=== PATIENT | female | born 1955 | race Caucasian/White ===

== ENCOUNTER 2021-04-17 08:49 | Outpatient (CLI) | payer OTHER, SELFPAY ==
--- NOTE | ~2021-04-17 | MM_ITS ---
EXAMINATION: MM scrn kevin implant BI w judy HISTORY: Screening mammogram TECHNIQUE: Craniocaudal and mediolateral oblique 3-D tomosynthesis images with implant displacement a nd synthetic 2-D images were generated. Craniocaudal and mediolateral oblique views of the breasts wi thout implant displacement were obtained using full field digital mammography. CAD analysis was submi tted and interpreted. COMPARISON: 12/05/2018, 10/22/2017 BREAST PARENCHYMAL COMPOSITION: There are scattered areas of fibroglandular density. FINDINGS: There is no evidence of suspicious mass, calcification, or architectural distortion to sugg est malignancy in either breast. There has been no suspicious interval change. IMPRESSION: 1. No mammographic evidence of malignancy. 2. Recommend routine screening mammography in one year. BI-RADS Category 1: Negative Reviewed, dictated and finalized at location A.
== END 2021-04-17 08:50 | disposition home or self-care (01) ==
LOC: ANHIMG 08:52
PROVIDERS: PCP Internal Medicine; Visit Provider Obstetrics & Gynecology
DX: Z12.31 Encounter for screening mammogram for malignant neoplasm of breast (principal)
CPT/HCPCS: 77063; 77067

== ENCOUNTER 2022-05-21 15:52 | Outpatient (CLI) | payer OTHER, SELFPAY ==
--- NOTE | ~2022-05-21 | MM_ITS ---
EXAMINATION: MM scrn kevin implant BI w judy HISTORY: Screening mammogram TECHNIQUE: Craniocaudal and mediolateral oblique 3-D tomosynthesis images with implant displacement a nd synthetic 2-D images were generated. Craniocaudal and mediolateral oblique views of the breasts wi thout implant displacement were obtained using full field digital mammography. CAD analysis was submi tted and interpreted. COMPARISON: 04/17/2021, 12/05/2018, 10/22/2017 bilateral implant screening mammogram examinations BREAST PARENCHYMAL COMPOSITION: There are scattered areas of fibroglandular density. FINDINGS: Status post bilateral augmentation mammoplasty. There is no evidence of suspicious mass, ca lcification, or architectural distortion to suggest malignancy in either breast. There has been no benjamin spicious interval change. IMPRESSION: 1. No mammographic evidence of malignancy. 2. Recommend routine screening mammography in one year. BI-RADS Category 1: Negative Reviewed, dictated and finalized at location A.
== END 2022-05-21 15:53 | disposition home or self-care (01) ==
PROVIDERS: PCP Internal Medicine; Visit Provider Obstetrics & Gynecology
DX: Z12.31 Encounter for screening mammogram for malignant neoplasm of breast (principal)
CPT/HCPCS: 77063; 77067

== ENCOUNTER 2023-02-05 00:29 | Day surgery (SDC) | payer OTHER, SELFPAY ==
[2023-02-02 14:25] VITALS: BMI 29.5
--- NOTE | 2023-02-04 14:28 | WPDANESEPPF ---
Anes - Initial Pre Proc Eval Procedure: Operation Date: 02/05/23 08:00 Proposed Procedures p Screening Colonoscopy - Doe Shanks MD Date/Time: 02/04/23 14:28 Surgeon: Doe Shanks MD Pre Op Diagnosis: neoplasm screening Patient Data Age: 67 Gender: F Height: 1.63 m Weight: 78.2 kg Allergies Allergy/AdvReac Type Severity Reaction Status Date / Time prednisone AdvReac hot Verified 02/02/23 14:26 flashes red face Home Medications Medication Instructions Recorded Confirmed Type multivitamin,[id number] 1 tablet PO DAILY 02/15/20 02/02/23 History (Complete Multivitamin tablet) levocetirizine [Xyzal] 5 mg PO DAILY 12/23/21 02/02/23 History metoprolol succinate 50 mg 50 mg PO DAILY 12/23/21 02/02/23 History tablet,extended release 24 hr estradiol 1 mg tablet 1 mg PO DAILY #30 tabs 11/09/22 02/02/23 Rx clonidine HCl 0.1 mg tablet 0.1 mg PO DAILY #30 tabs 12/10/22 02/02/23 Rx sodium,potassium,mag sulfates 17.5 See Rx Instructions PO .COMPLEX 12/28/22 Rx gram-3.13 gram-1.6 gram oral soln #354 mL (Suprep Bowel Prep Kit) ascorbic acid (vitamin C) 1,000 mg 1 g PO DAILY 02/02/23 02/02/23 History capsule atorvastatin 10 mg tablet 10 mg PO DAILY 02/02/23 02/02/23 History azelastine 137 mcg (0.1 %) nasal 1 spray intranasal BID 02/02/23 02/02/23 History spray aerosol calcium 600 mg capsule 600 mg PO DAILY 02/02/23 02/02/23 History gabapentin 300 mg capsule 300 mg PO TID 02/02/23 02/02/23 History Patient hx anesthesia problems: none Family hx anesthesia problems: none Results Review: All pre-operative results and documents have been reviewed as part of the pre-operative evaluation. [facility] Past Medical History Medical History (Updated 02/04/23 @ 14:28 by Macario Beltran MD) History of vaginal delivery x 3 Hyperlipidemia due to dietary fat intake Hypertension Overweight (BMI 25.0-29.9) Surgical History Surgical History H/O elbow surgery History of breast surgery History of foot surgery History of hysterectomy Hx of tonsillectomy Family History Family History Father Hypertension Family history of coronary artery disease Mother Hypertension Family history of coronary artery disease Sibling Family history of coronary artery disease Social History Social History Smoking status: Former smoker Tobacco type: cigarettes Second hand tobacco smoke exposure: No Smoking end date: 08/23/95 Alcohol intake: current Drinks per week: 3 Alcohol use details: GLASSES WINE Substance use: never Substance use type: does not use and marijuana Other substance usage details: OCC. VAPING Lack of Transportation: No Lack of Food: Never True Current Housing: I Have Housing Concerned About Future Housing: No Difficulty Paying Gas/Electric Bills: No Difficulty Paying for Meds: No Currently Unemployed: No Difficulty w/ Childcare or Family Care: No Living arrangements: with family Spiritual care concerns: No Anes - Eval Final PreProcedure Day of Procedure 02/04/23 14:28 Patient weight: overweight Heart: regular rate and rhythm Lungs: clear to auscultation and normal air movement Airway: Mallampati scale class II Neurological: alert and oriented Last oral intake: >/= 8 hours ASA classification: II Emergent: no Anesthetic plan: proceed Anesthesia type and monitoring: general GIVS Results Review: All pre-operative results and documents have been reviewed as part of the pre-operative evaluation. Informed Consent: The patient's anesthetic plan and its attendant risks and benefits were discussed with the patient/family/POA. Questions were solicited and answers provided to the satisfaction of the patient/family/POA.
[2023-02-05 06:45] VITALS: BP 163/86; PULSE 69; RESP 16; TEMP 36.3; O2SAT 99; BMI 28.8
[2023-02-05] MEDS: LACTATED RINGERS 1,000 ML 150 ML IV CONT (07:06)
--- NOTE | 2023-02-05 08:02 | PM.HPGS ---
History of Present Illness History of Present Illness Consent: Risks, benefits, and alternatives have been discussed and questions answered. Patient agrees to proceed with procedure. Chief complaint: neoplasm screening Narrative: Bozena Hylton is a 67 year old female Presents for screening colonoscopy. Patient's current weight appetite bowel movements are normal. Patient denies abdominal pain. She has had no bleeding. Family history is noncontributory. Review of Systems Review of Systems: Review of systems noncontributory. [facility] Past Medical History Medical History (Updated 02/05/23 @ 08:03 by Doe Shanks MD) History of vaginal delivery x 3 Hyperlipidemia due to dietary fat intake Hypertension Overweight (BMI 25.0-29.9) Surgical History Surgical History H/O elbow surgery History of breast surgery History of foot surgery History of hysterectomy Hx of tonsillectomy Family History Family History Father Hypertension Family history of coronary artery disease Mother Hypertension Family history of coronary artery disease Sibling Family history of coronary artery disease Social History Social History Smoking status: Former smoker Tobacco type: cigarettes Second hand tobacco smoke exposure: No Smoking end date: 08/23/95 Alcohol intake: current Drinks per week: 3 Alcohol use details: GLASSES WINE Substance use: never Substance use type: does not use and marijuana Other substance usage details: OCC. VAPING Lack of Transportation: No Lack of Food: Never True Current Housing: I Have Housing Concerned About Future Housing: No Difficulty Paying Gas/Electric Bills: No Difficulty Paying for Meds: No Currently Unemployed: No Difficulty w/ Childcare or Family Care: No Living arrangements: with family Spiritual care concerns: No Meds Home Medications and Allergies Home Medications Medication Instructions Recorded Confirmed Type multivitamin,[id number] 1 tablet PO DAILY 02/15/20 02/02/23 History (Complete Multivitamin tablet) levocetirizine [Xyzal] 5 mg PO DAILY 12/23/21 02/02/23 History metoprolol succinate 50 mg 50 mg PO DAILY 12/23/21 02/02/23 History tablet,extended release 24 hr estradiol 1 mg tablet 1 mg PO DAILY #30 tabs 11/09/22 02/02/23 Rx clonidine HCl 0.1 mg tablet 0.1 mg PO DAILY #30 tabs 12/10/22 02/02/23 Rx sodium,potassium,mag sulfates 17.5 See Rx Instructions PO .COMPLEX 12/28/22 Rx gram-3.13 gram-1.6 gram oral soln #354 mL (Suprep Bowel Prep Kit) ascorbic acid (vitamin C) 1,000 mg 1 g PO DAILY 02/02/23 02/02/23 History capsule atorvastatin 10 mg tablet 10 mg PO DAILY 02/02/23 02/02/23 History azelastine 137 mcg (0.1 %) nasal 1 spray intranasal BID 02/02/23 02/02/23 History spray aerosol calcium 600 mg capsule 600 mg PO DAILY 02/02/23 02/02/23 History gabapentin 300 mg capsule 300 mg PO TID 02/02/23 02/02/23 History Allergies Allergy/AdvReac Type Severity Reaction Status Date / Time prednisone AdvReac hot Verified 02/02/23 14:26 flashes red face Vital Signs Vital Signs - 24 hr 02/05/23 06:45 Temperature 97.3 F L Pulse Rate 69 Respiratory Rate 16 Blood Pressure 163/86 H Pulse Oximetry 99 Oxygen Delivery Room Air Exam Narrative: Physical exam reveals patient to be alert. Vital signs stable. HEENT exam is unremarkable. Patient is anicteric. Lungs are clear to auscultation and percussion. Heart is without murmur or extra sounds. Abdominal exam bowel sounds are present soft nontender with no hepatosplenomegaly. Digital external rectal exam is normal. Assessment and Plan Assessment and plan (1) Encounter for screening colonoscopy: Code(s): Z12.11 - Encounter for screening for malignant neoplasm of
[2023-02-05 08:31] VITALS: BP 117/75; PULSE 79; RESP 24; O2SAT 97
[2023-02-05 08:41] VITALS: BP 130/84; PULSE 74; RESP 20; O2SAT 99
[2023-02-05 08:51] VITALS: BP 141/94; PULSE 71; RESP 18; O2SAT 99
== END 2023-02-05 08:59 | disposition home or self-care (01) ==
PROVIDERS: PCP Hospitalist; Visit Provider Internal Medicine Gastroenterology
PROC: 0DJD8ZZ Inspection of Lower Intestinal Tract, Via Natural or Artificial Opening Endoscopic (ICD-10-PCS; CPT 45378; principal; 2023-02-05 08:00)
DX: Z12.11 Encounter for screening for malignant neoplasm of colon (principal); K64.8 Other hemorrhoids; I10 Essential (primary) hypertension; E78.5 Hyperlipidemia, unspecified; Z87.891 Personal history of nicotine dependence; F12.90 Cannabis use, unspecified, uncomplicated
CPT/HCPCS: G0121; J2704; J7120

== ENCOUNTER 2023-04-01 08:00 | Outpatient (NON) | payer OTHER, SELFPAY | END 2023-04-01 08:01 | disposition home or self-care (01) | PROVIDERS: PCP Hospitalist; Visit Provider Nurse Practitioner | DX: L72.11 Pilar cyst (principal) | CPT/HCPCS: 88305 ==

== ENCOUNTER 2023-08-30 14:26 | Outpatient (CLI) | payer MEDICARE, SELFPAY ==
--- NOTE | ~2023-08-30 | MM_ITS ---
EXAMINATION: MM scrn kevin implant BI w judy HISTORY: Screening mammogram TECHNIQUE: Craniocaudal and mediolateral oblique 3-D tomosynthesis images with implant displacement a nd synthetic 2-D images were generated. Craniocaudal and mediolateral oblique views of the breasts wi thout implant displacement were obtained using full field digital mammography. CAD analysis was submi tted and interpreted. COMPARISON: 05/21/2022, 04/17/2021, 12/05/2018 BREAST PARENCHYMAL COMPOSITION: There are scattered areas of fibroglandular density. FINDINGS: There is no evidence of suspicious mass, calcification, or architectural distortion to sugg est malignancy in either breast. There has been no suspicious interval change. IMPRESSION: 1. No mammographic evidence of malignancy. 2. Recommend routine screening mammography in one year. BI-RADS Category 1: Negative Reviewed, dictated and finalized at location A. [employer]
== END 2023-08-30 14:27 | disposition home or self-care (01) ==
LOC: ANHIMG 14:29
PROVIDERS: PCP Hospitalist; Visit Provider Obstetrics & Gynecology
DX: Z12.31 Encounter for screening mammogram for malignant neoplasm of breast (principal); Z98.82 Breast implant status
CPT/HCPCS: 77063; 77067

== ENCOUNTER 2024-01-18 09:23 | Outpatient (CLI) | payer MEDICARE, SELFPAY ==
[2024-01-18 10:09] LABS: Alanine Aminotransferase 33 U/L (6-35); Albumin Level 4.4 g/dL (3.5-5.1); Alkaline Phosphatase 85 U/L (38-126); Aspartate Amino Transferase 33 U/L (14-36); Bilirubin,Total 0.4 mg/dL (0.2-1.3)
== END 2024-01-18 09:24 | disposition home or self-care (01) ==
PROVIDERS: PCP Hospitalist; Visit Provider Obstetrics & Gynecology
DX: N95.9 Unspecified menopausal and perimenopausal disorder (principal)
CPT/HCPCS: 36415; 80076

== ENCOUNTER 2024-05-15 00:30 | Day surgery (SDC) | payer MEDICARE, SELFPAY ==
[2024-05-08 10:55] VITALS: BMI 29.5
--- NOTE | 2024-05-08 11:12 | PC.NURSE ---
Report to the Outpatient Waiting Room, entrance under the green pavilion located off [facility], at time ____9:00AM___ on date ___05/15/24____. Planned Procedure Time: ___11:00AM .? Time changes happen often and if your time is changed the preop area will call you the afternoon before. - You and your visitor will be asked to self-screen and do not enter if you have any COVID symptoms. Please call surgeon if you need to reschedule. - A mask is optional within the hospital at this time. Patients may have clear liquids (water, carbonated beverages, clear teas, apple juice) until 3 hours prior to surgery with a maximum of 20 ounces. - No food from midnight until time of surgery and no smoking. Take only the following medications with a SIP of water on the morning of surgery: BUPROPION, PREGABALIN DO NOT STOP ANY OF YOUR OTHER PRESCRIPTION MEDICATIONS PRIOR TO SURGERY EXCEPT THE FOLLOWING Medications to discontinue per physician ____HOLD ALL VITAMINS/SUPPLEMENTS 7 DAYS PRE-OP PER DR DONOVAN Date to take last dose 05/07/24 Please no make-up, nail german, hairspray, perfume, deodorant, or body powder the day of surgery.? No jewelry (including any body piercings) or valuables the day of surgery, leave them at home.? Please take a shower or bath the night before, or the morning of, surgery with an antibacterial soap.? Wear comfortable, loose fitting clothing.? - Jewelry must be removed prior to entering the operating room.? Rings and piercings that are not removed may be cut off. - The hospital will not accept responsibility for valuables.? - Please leave all valuables, including medications, at home the day of surgery. If you are going home after surgery, a licensed buggy driver must drive you home.? - NO public transportation without another adult if you receive anesthesia. - We recommend that an adult stay with you for 24 hours following discharge. - We also recommend that you do not drive, make important decision, drink alcoholic beverages, or take any drugs that were not prescribed by your health care provider for at least 24 hours after your discharge time.. Follow any additional instructions given to you from your surgeon. Telephone instructions given to PATIENT and asked if any additional questions and then verbalized understanding. Patient advised to call surgeon office or pre surgery nurse liaison [phone] if any additional questions.
--- NOTE | 2024-05-12 10:57 | PM.IMHP ---
H&P: HPI History of Present Illness Date/Time: 05/12/24 10:57 Chief Complaint: Mixed incontinence Narrative: Has history of mixed incontinence. Presents for surgical treatment of stress incontinence Review of Systems Review of Systems: All systems reviewed & are unremarkable except as noted in HPI and below PMFSH Past Medical History Medical History History of vaginal delivery x 3 Hyperlipidemia due to dietary fat intake Hypertension Overweight (BMI 25.0-29.9) Surgical History Surgical History H/O elbow surgery History of breast surgery History of foot surgery History of hysterectomy Hx of tonsillectomy Family History Family History Father Hypertension Family history of coronary artery disease Mother Hypertension Family history of coronary artery disease Sibling Family history of coronary artery disease Social History Social History Smoking packs per day: 1 Smoking cigarettes per day: 20.0 Years smoked: 20 Smoking pack-years: 20.00 Smoking status: Former smoker Tobacco type: cigarettes Second hand tobacco smoke exposure: No Smoking end date: 02/21/96 Alcohol intake: current Drinks per week: 2 Alcohol use details: GLASSES WINE Substance use: never Substance use type: does not use and marijuana Other substance usage details: OCC. VAPING Lack of Transportation: No Lack of Food: Never True Current Housing: I Have Housing Concerned About Future Housing: No Difficulty Paying Gas/Electric Bills: No Difficulty Paying for Meds: No Currently Unemployed: No Difficulty w/ Childcare or Family Care: No Living arrangements: with family Additional living arrangements comments: MATTHEW Spiritual care concerns: No Meds Home Medications and Allergies Home Medications Medication Instructions Recorded Confirmed Type multivitamin,[id number]-[id number] 1 tablet PO DAILY 02/15/20 05/08/24 History (Complete Multivitamin tablet) metoprolol succinate 50 mg 50 mg PO DAILY 12/23/21 05/08/24 History tablet,extended release 24 hr ascorbic acid (vitamin C) 1,000 mg 1 g PO DAILY 02/02/23 05/08/24 History capsule atorvastatin 10 mg tablet 10 mg PO DAILY 02/02/23 05/08/24 History calcium 600 mg capsule 600 mg PO DAILY 02/02/23 05/08/24 History bupropion HCl 150 mg 24 hr tablet, 150 mg PO QAM 12/30/23 05/08/24 History extended release estradiol 1 mg tablet 1 mg PO DAILY #90 tabs 02/23/24 05/08/24 Rx clonidine HCl 0.1 mg tablet 0.1 mg PO HS 05/08/24 05/08/24 History levocetirizine 5 mg tablet (Xyzal) 5 mg PO HS 05/08/24 05/08/24 History pregabalin 150 mg capsule 150 mg PO BID 05/08/24 05/08/24 History Allergies Allergy/AdvReac Type Severity Reaction Status Date / Time prednisone AdvReac hot Verified 05/08/24 10:47 flashes, red face Exam Narrative: Positive urethral mobility Assessment and Plan Assessment and plan (1) LEENA (stress urinary incontinence, female): Code(s): N39.3 - Stress incontinence (female) (male) Status: Acute Assessment and Plan: Plan for urethral sling. Understands risks of bleeding, infection, damage surrounding organs, damage to urinary tract, vaginal mesh extrusion, urinary tract mesh erosion, obstructive voiding requiring requiring a secondary procedure, hip and leg pain, dyspareunia. Agrees to proceed. Also understands it will not help overactive bladder symptoms
[2024-05-15] VITALS (8 sets, daily range): BP systolic 81–158; BP diastolic 50–93; PULSE 72–80; RESP 9–16; TEMP 36.1–36.5; O2SAT 94–99
--- NOTE | 2024-05-15 07:16 | WPDHPUPDATE1 ---
History and Physical Update Update Date/Time: 05/15/24 07:16 History and Physical has been reviewed, including an updated exam of the patient. There are NO changes in the patient's condition. Risks, benefits, and alternatives have been discussed and questions answered. Patient agrees to proceed with procedure.
[2024-05-15] MEDS: LACTATED RINGERS 1,000 ML 30 ML IV CONT (09:40)
--- NOTE | 2024-05-15 10:18 | WPDANESEPPF ---
Anes - Initial Pre Proc Eval Procedure: Operation Date: 05/15/24 11:00 Proposed Procedures p Urethral Sling, Cystoscopy - Tate Kimball MD Date/Time: 05/15/24 10:18 Surgeon: Tate Kimball MD Pre Op Diagnosis: stress incontinence Patient Data Age: 69 Gender: F Height: 1.63 m Weight: 79.7 kg Last Vital Signs Temp 97.0 F L 05/15/24 09:49 Pulse 76 05/15/24 09:49 Resp 16 05/15/24 09:49 BP 158/93 H 05/15/24 09:49 Pulse Ox 95 05/15/24 09:49 O2 Del Method Room Air 05/15/24 09:49 Allergies Allergy/AdvReac Type Severity Reaction Status Date / Time prednisone AdvReac hot Verified 05/15/24 09:30 flashes, red face Home Medications Medication Instructions Recorded Confirmed Type multivitamin,[id number] 1 tablet PO DAILY 02/15/20 05/08/24 History (Complete Multivitamin tablet) metoprolol succinate 50 mg 50 mg PO DAILY 12/23/21 05/08/24 History tablet,extended release 24 hr ascorbic acid (vitamin C) 1,000 mg 1 g PO DAILY 02/02/23 05/08/24 History capsule atorvastatin 10 mg tablet 10 mg PO DAILY 02/02/23 05/08/24 History calcium 600 mg capsule 600 mg PO DAILY 02/02/23 05/08/24 History bupropion HCl 150 mg 24 hr tablet, 150 mg PO QAM 12/30/23 05/15/24 History extended release estradiol 1 mg tablet 1 mg PO DAILY #90 tabs 02/23/24 05/08/24 Rx clonidine HCl 0.1 mg tablet 0.1 mg PO HS 05/08/24 05/08/24 History levocetirizine 5 mg tablet (Xyzal) 5 mg PO HS 05/08/24 05/08/24 History pregabalin 150 mg capsule 150 mg PO BID 05/08/24 05/15/24 History hydrocodone 5 mg-acetaminophen 325 1 tablet PO Q6H PRN pain #15 tabs 05/15/24 Rx mg tablet Patient hx anesthesia problems: none Family hx anesthesia problems: none Results Review: All pre-operative results and documents have been reviewed as part of the pre-operative evaluation. PMFSH Past Medical History Medical History History of vaginal delivery x 3 Hyperlipidemia due to dietary fat intake Hypertension Overweight (BMI 25.0-29.9) Surgical History Surgical History H/O elbow surgery History of breast surgery History of foot surgery History of hysterectomy Hx of tonsillectomy Family History Family History Father Hypertension Family history of coronary artery disease Mother Hypertension Family history of coronary artery disease Sibling Family history of coronary artery disease Social History Social History Smoking packs per day: 1 Smoking cigarettes per day: 20.0 Years smoked: 20 Smoking pack-years: 20.00 Smoking status: Former smoker Tobacco type: cigarettes Second hand tobacco smoke exposure: No Smoking end date: 02/21/96 Alcohol intake: current Drinks per week: 2 Alcohol use details: GLASSES WINE Substance use: never Substance use type: does not use and marijuana Other substance usage details: OCC. VAPING Lack of Transportation: No Lack of Food: Never True Current Housing: I Have Housing Concerned About Future Housing: No Difficulty Paying Gas/Electric Bills: No Difficulty Paying for Meds: No Currently Unemployed: No Difficulty w/ Childcare or Family Care: No Living arrangements: with family Additional living arrangements comments: HUSB Spiritual care concerns: No Anes - Eval Final PreProcedure Day of Procedure 05/15/24 10:18 Patient weight: normal Heart: regular rate and rhythm Lungs: clear to auscultation Airway: Mallampati scale class II Neurological: alert and oriented Last oral intake: >/= 8 hours ASA classification: III Emergent: no Anesthetic plan: proceed Anesthesia type and monitoring: general GIVS and standard monitoring Results Review: All pre-operative results and documents have been
[2024-05-15] MEDS: ceFAZolin 2 GM/D5W 50 ML 2 GM/50 ML BAG IVPB (10:22)
[2024-05-15] MEDS: BUPIVACAINE/EPINEPHRINE 0.5% 50 ML VIAL 10 ML INFILTRATE (10:38)
--- NOTE | 2024-05-15 10:58 | W.PM.PROC2 ---
Procedure Note - Detailed Date of Procedure 05/15/24 Pre-op Diagnosis stress incontinence Post-op Diagnosis Same Procedure Performed mid urethral sling cystoscopy Surgeon Tate Kimball MD Anesthesia General Indications This is a female with confirm stress urinary incontinence. She desires surgical correction. She understands the risks of bleeding, infection, injury to the urinary tract, vaginal mesh extrusion, urinary tract mesh erosion, obstructive voiding requiring a secondary procedure, hip and leg pain, dyspareunia, inability to improve overactive bladder symptoms. She agrees to proceed. Description of Procedure She was correctly identified. Informed consent obtained. She was brought the operating room. She was given appropriate anesthesia. She was given appropriate perioperative antibiotics. A time-out performed. I marked out the site of the inner thigh incisions. I anesthetized the skin and made those incisions. I anesthetized the anterior vaginal wall over the mid urethra. I made a 1 cm incision. I dissected out laterally taking great care not to injure the refilled vaginal wall. I passed the helical trocars. First on the left. Then on the right. I did this from the thigh incision towards the vaginal incision. The sling was connected to the trocars and brought out through the thigh incision. I tensioned the sling appropriately. I cut and the plastic sheaths. I then closed the incision with 2 0 Vicryl. On cystoscopy there is no tumors or surgical artifact. There was no surgical artifact in the urethra. I cut the excess sling material. Close incisions with glue. She was awakened and transferred to the PACU in stable condition. Implants Urethral sling Drains No Packing No Pathology None sent Complications No immediate complications Condition Stable Disposition PACU
== END 2024-05-15 12:37 | disposition home or self-care (01) ==
PROVIDERS: PCP Hospitalist; Visit Provider Urology
PROC: (CPT 57288; principal; 2024-05-15 11:00)
DX: N39.3 Stress incontinence (female) (male) (principal); I10 Essential (primary) hypertension; E78.5 Hyperlipidemia, unspecified; Z79.891 Long term (current) use of opiate analgesic; Z98.890 Other specified postprocedural states; Z87.891 Personal history of nicotine dependence; Z82.49 Family history of ischemic heart disease and other diseases of the circulatory system
CPT/HCPCS: 57288; C1771; J0690; J1100; J2250; J2405; J2704; J3010; J7120

== ENCOUNTER 2025-01-09 07:53 | Outpatient (CLI) | payer MEDICARE, SELFPAY ==
--- NOTE | ~2025-01-09 | DEXA_ITS ---
Bone Density Report Name: JERE PORRAS Age: 69 Sex: Female Ethnicity: White Date of : 1955 Indication: postmenopausal; screening for osteoporosis; hysterectomy; Referring Provider: RADHA MODI Study: Bone densitometry was performed. Exam Date: January 09, 2025 Accession number: [id number] Bone Density: Region BMD T-score Z-score Classification AP Spine(L1-L4) 1.047 0.0 1.9 Normal Femoral Neck (Left) 0.705 -1.3 0.4 Osteopenia Total Hip (Left) 0.897 -0.4 1.0 Normal Femoral Neck (Right) 0.723 -1.1 0.5 Osteopenia Total Hip (Right) 0.913 -0.2 1.1 Normal Total Hip Mean 0.905 -0.3 1.1 Normal World Health Organization criteria for BMD impression classify patients as: Normal (T-score at or above -1.0), Osteopenia (T-score between -1.0 and -2.5), or Osteoporosis (T-score at or below -2.5). 10-year Fracture Risk(1): Major Osteoporotic Fracture 8.8% Hip Fracture 0.9% Reported Risk Factors: [place] (), Neck BMD=0.705, BMI=30.1 (1) FRAX(R) Version 3.08. Fracture probability calculated for an untreated patient. Fracture probability may be lower if the patient has received treatment. Previous Exams: -- Region Exam Age BMD T-score BMD Change BMD Change Date g/cm2 vs Baseline vs Previous -- AP Spine (L1-L4) 01/09/2025 69 1.047 0.0 -3.4%* -3.4%* 12/05/2018 63 1.084 0.3 Total Hip(Left) 01/09/2025 69 0.897 -0.4 -2.6% -2.6% 12/05/2018 63 0.921 -0.2 Total Hip(Right) 01/09/2025 69 0.913 -0.2 2.7% 2.7% 12/05/2018 63 0.889 -0.4 -- *Denotes significance at 95% confidence level, LSC for AP Spine = 0.022 g/cm2, LSC for Total Hip = 0.027 g/cm2 Clinical Information Provided by Patient: Has used the following medications: HRT (i.e. estrogen/hormone therapy), Calcium Has the following medical conditions: Hysterectomy Patient maximum height was 64.0 Menopause Age: 52 No regular weight bearing exercise Drinks caffeinated beverages Onset of menses at age 15 Number of children 3 Impression: The patient has low bone mass, based on the Left Femoral Neck T-score. The patient has an estimated ten-year risk of hip fracture of 0.9% and an estimated ten-year risk of major fracture of 8.8%, based on the WHO FRAX algorithm. The BMD for the AP Spine (L1-L4) decreased, changing by -3.4% since the last DXA exam. Discussion: BONE DENSITY IS LOW AT ONE OR MORE SKELETAL SITES. This patient's lowest T-score is low at one or more skeletal sites. It meets the World Health Organization's (WHO) criteria for ?low bone mass? (T-score between -1.0 and -2.5). The patient's 10-year risk of fracture as calculated by FRAX is less than the threshold where pharmacological therapy is recommended by the National Osteoporosis Foundation (NOF). However, all treatment decisions require clinical judgment and consideration of individual patient factors, including patient preferences, comorbidities, previous drug use, risk factors not captured in the FRAX model (e.g., frailty, falls, vitamin D deficiency, increased bone turnover, interval significant decline in bone density) and possible under or overestimation of fracture risk by FRAX. The patient should follow a healthful lifestyle (good nutrition with adequate calcium and vitamin D, and appropriate weight-bearing exercise). Follow-Up: Consider repeating this study in 2 years to reassess this patient's status, or sooner if there is some new clinical indication. Reported by: ANABEL on 01/10/2025 8:59:00 AM. Reviewed, dictated and finalized at location A.
== END 2025-01-09 07:54 | disposition home or self-care (01) ==
PROVIDERS: PCP Hospitalist; Visit Provider Obstetrics & Gynecology
DX: M85.852 Other specified disorders of bone density and structure, left thigh (principal); M85.851 Other specified disorders of bone density and structure, right thigh; Z78.0 Asymptomatic menopausal state
CPT/HCPCS: 77080

== ENCOUNTER 2025-04-18 14:33 | Outpatient (CLI) | payer MEDICARE, SELFPAY ==
--- NOTE | ~2025-04-18 | MM_ITS ---
EXAMINATION: MM scrn kevin implant BI w judy INDICATION: Asymptomatic, referred for screening mammogram COMPARISON: 08/30/2023 through 10/22/2017 TECHNIQUE: Digital Breast Tomosynthesis CC, MLO, and implant displaced CC and MLO views of Both breasts were obtained with computer-aided detection to assist in interpretation of the study. FINDINGS: There are scattered areas of fibroglandular density. Bilateral breast Retropectoral Saline implants in place appears intact. No focal dominant mass, architectural distortion, or suspicious microcalcifications are identified. There are no features to suggest malignancy. IMPRESSION: 1. No evidence of malignancy in the breasts. 2. Both breasts Retropectoral Saline implants appears intact. Recommend continued screening mammography BI-RADS 1, NEGATIVE Reviewed, dictated and finalized at location B.
--- OUTSIDE RECORDS SUMMARY | 2025-04-18 14:39 | XMS_ITS | Encounter Summary ---
Author Organization [facility] Address [address] [place] [address] Phone Care Team Providers Care Physical Therapy Asst Name Role Phone Jhoan Allen MD Primary Care Provider [phone] New Campo MD Unavailable [phone] Reason for Visit * Reason Comments Medication Refill Encounter Details Date Type Department Care Team (Late st Contact Info) Description 10/28/2022 Refill [facility] - [facility] Care - [place] [address] [place] [phone] Jhoan Allen MD [address] [place] [address] Medication Refill Social History Tobacco Use Types Packs/Day Years Used Date Smoking Tobacco: Former Cigarettes 1 20 0 09/02/1974 - 09/02/1994 Smokeless Tobacco: Never Alcohol Use Standard Drinks/Week Comments Yes 1 (1 standard drink = 0.6 oz pur e alcohol) PHQ-2 Answer Date Recorded PHQ-2 Score 1 04/21/2019 Education Answer Date Recorded What is the highest level of school you have completed or the highest degree you have received? GED or equivalent 10/2021 Comments No Sex and Gender Information Value Date Recorded Sex Assigned at Not on file Legal Sex Female 9:05 PM CDT Gender Identity Not on file Sexual Orientation Not on file documented as of this encounter Miscellaneous Notes * Telephone Encounter - Suzanne Herrera RN - 10/28/2022 9:44 AM CST metoprolol Succinate (TOPROL-XL) 50 MG TABLET SR 24 HR 90 Tablet 0 09/28/2022 Refill too soon BOARD OPERATOR documented in this encounter Plan of Treatment Not on file documented as of this encounter Visit Diagnoses Diagnosis Hypertension, essential Unspecified essential hypertension documented in this encounter Additional Health Concerns Assessment Noted Time PHQ-9 Depression Total Score: 1 05/19/20 18 1:00 PM CDT documented as of this encounter Care Teams Physical Therapy Asst Relationship Specialty Start Date End Date Jhoan Allen MD [address] [place] [address] PCP - General Internal Medicine 09/02/15 New Campo MD [address] [facility] [address] [place], [place] [id number] Consulting Physician Obstetrics & Gynecology 01/29/17 documented as of this encounter
--- OUTSIDE RECORDS SUMMARY | 2025-04-18 14:39 | XMS_ITS | Clinical Summary ---
Author Organization [facility] Address [address] [address] Phone Care Team Providers Care Marble Polisher Name Role Phone Unknown, Notinfile Unavailable Unavailable Richard Gonzalez MD Primary Care Provider [phone] Allergies Active Allergy Reactions Criticality Noted Date Comments Methylprednisolone Hives Medium 03/04/2020 Medications estradioL (ESTRACE) 1 mg tablet Take 1 tablet (1 mg total) by mouth daily 2 Active levocetirizine (XYZAL) 5 mg tablet Take 1 tablet (5 mg total) by mouth every evening Active azelastine (ASTELIN) 137 mcg (0.1 %) nasal spray Administer 1 spray into each nostril 2 (two) times a day Use in each nostril as directed 30 mL 2 3 Active cloNIDine (CATAPRES) 0.1 mg tabletIndications: Hypertension, essential Take 1 tablet (0.1 mg total) by mouth daily 90 tablet 1 4 Active metoprolol XL (TOPROL-XL) 50 mg extended release tabletIndications: Hypertension, essential Take 1 tablet (50 mg total) by mouth daily 90 tablet 3 4 025 Active pregabalin (LYRICA) 150 mg capsuleIndications :Idiopathic peripheral neuropathy Take 1 capsule (150 mg total) by mouth 2 (two) times a day 180 capsule 1 5 026 Active atorvastatin (LIPITOR) 10 mg tabletIndications: Mixed hyperlipidemia Take 1 tablet (10 mg total) by mouth daily 90 tablet [address] (CYMBALTA) 20 mg capsule Take 1 capsule (20 mg total) by mouth daily for 14 days, THEN 2 capsules (40 mg total) daily for 14 days, THEN 3 capsules (60 mg total) daily. 222 capsule 5 025 Active Active Problems Problem Noted Date Diagnosed Date Pain in both feet 02/10/2024 Assessment & Plan (02/10/2024 9:28 AM CDT): Impression: Patient complains of pain to the bottom of bilateral feet. She reports pain worsens when she is bare foot. She denies any symptoms of claudication, ischemic rest pain or ulcerations to her lower extremity. Patient has palpable pulses throughout bilateral lower extremities. Minimal edema is noted to bilateral feet. Plan: Patient unlikely has peripheral vascular disease as she has palpable pulses and denies any symptoms of claudication. -recommend patient to follow-up with primary care provider for further evaluation with possible referral to podiatry. Numbness and tingling in both hands 02/10/2024 Assessment & Plan (02/10/2024 9:27 AM CDT): Impression: Patient complains of numbness to bilateral hands that occur intermittently. She denies any symptoms suggestive of claudication of her upper extremities. Patient has palpable radial and brachial pulses. Plan: Discussed with the patient numbness to bilateral hands are unlikely vascular related she has palpable pulses throughout bilateral upper extremities. -recommend patient to follow up with primary care provider for further evaluation if numbness to bilateral hands worsens Anxiety and depression 12/28/2023 Assessment & Plan (11/02/2024 12:52 PM CDT): Stable, no episodes of depression, no changes to mood with medication Discontinue bupropion Assessment & Plan (03/01/2024 2:13 PM CDT): Chronic, stable Increase Wellbutrin 300 mg daily Class 1 obesity due to exces s calories with serious comorbidity and body mass index (BMI) of 30.0 to 30.9 in adult 12/28/2023 Assessment & Plan (11/02/2024 12:51 PM CDT): Patient reports some difficulty in losing weight, will continue to monitor Assessment & Plan (03/01/2024 2:14 PM CDT): Weight stable Increase Wellbutrin 300 mg daily Assessment & Plan (12/28/2023 1:43 PM CDT): Continues to struggle to lose weight Was walking 3 miles but due to the neuropathy she is going good to get 2 miles in Wellbutrin 150 mg daily Follow up 2 months Pedal edema 12/28/2023 Sensorineural hearing loss (SNHL) of both ears 1 Overview (06/21/2023): Continues to have hearing loss, difficulty with words and noisy environments; will refer for ENT in hearing test Assessment & Plan (05/02/2024 10:34 AM CDT): Stable, continues to have ringing in both ears; no current thoughts and getting hearing aids, though may if it will help with tinnitus Will continue to monitor Assessment & Plan (06/21/2023 2:36 PM CDT): White noise machines, radio, loud fan Hearing test Seasonal allergic rhinitis due to pollen 023 Assessment & Plan (06/21/2023 4:33 PM CDT): White noise machines, radio, loud fan Nasal saline spray (Simply saline, Little Remedies, [place], [place]) 2 second sprays or 2 squeezes into each nostril while looking down over the sink, do not need to sniff in. Followed by Flonase 2 sprays into each nostril while looking down over the sink, do not sniff in or blow nose after use for at least 30 minutes daily Hearing test Tinnitus of both ears 06/21/2023 Assessment & Plan (06/21/2023 2:39 PM CDT): White noise machines, radio, loud fan Flonase 2 sprays into each nostril while looking down over the sink, do not sniff in or blow nose after use for at least 30 minutes daily Hearing test Hepatitis C virus infection resolved after antiviral drug therapy 01/27/2023 Idiopathic peripheral neuropathy 01/27/2023 Assessment & Plan (11/02/2024 12:50 PM CDT): Not well controlled, continues to have significant symptoms, EMG demonstrated no large fiber neuropathy; patient has decreased sensation to light touch Would recommend evaluation by Neurology, possible nerve biopsy Continue Lyrica 150 mg b.I.d.; the patient reports limited relief Assessment & Plan (05/02/2024 10:34 AM CDT): Stable, causes pain in bilateral feet; as well as some balance issues Patient reports good response to medication Continue Lyrica 150 mg b.i.d. Assessment & Plan (03/01/2024 2:13 PM CDT): Chronic, generally stable Has been having some benefit with Lyrica Continue Lyrica 150 mg BID Assessment & Plan (12/28/2023 1:44 PM CDT): Chronic, somewhat stable Has been able to sleep through the night with Lyrica Still having swelling and alternating hot/cold feeling bilateral lower extremities Referral to vascular surgery placed Continue Lyrica 150 mg BID Assessment & Plan (11/19/2023 8:20 AM CDT): Has noticed slight improvement with Lyrica Still having intense pain when she takes her shoes off and her feet no longer have compression Increase Lyrica 150 mg BID Follow up 6 weeks Assessment & Plan (10/08/2023 10:01 AM TECHNICAL ADMINISTRATOR): Not currently well controlled; not getting relief from Gabapentin Has been waking up in the middle of the night with pain Stop Gabapentin and start Lyrica 75 mg BID Follow up in 6 weeks to assess treatment response; discussed possible neurology referral Assessment & Plan (04/07/2023 12:22 PM CDT): Stable, generally controlled with gabapentin 300 mg; continue gabapentin 300 mg t.i.d. p.r.n. Assessment & Plan (01/27/2023 10:20 AM CDT): Not well controlled, continues to have significant episodes of pain, with feet feeling rather very hot or very cold No changes to skin color Previously minimal relief with gabapentin, increase gabapentin to 300 mg t.i.d. Hypertension, essential 12/02/2022 Assessment & Plan (11/02/2024 12:51 PM CDT): Stable, well controlled, blood pressure at goal; no chest pain or pressure Continue clonidine 0.1 mg daily, metoprolol 50 mg daily Assessment & Plan (05/02/2024 10:33 AM CDT): Stable, well controlled, blood pressure at goal; no chest pain or pressure, no orthostatics Continue clonidine 0.1 mg daily, metoprolol 50 mg daily Assessment & Plan (02/10/2024 9:21 AM CDT): Impression: Chronic and stable. Plan: Continue metoprolol and clonidine Assessment & Plan (12/28/2023 1:24 PM CDT): Chronic, stable BP at goal at visit; 130/80 Continue Metoprolol 50 mg daily and Clonidine 0.1 mg daily Assessment & Plan (11/19/2023 8:06 AM CDT): Chronic, stable, well controlled BP at visit 132/86 Continue Metoprolol 50 mg daily and Clonidine 0.1 mg daily Assessment & Plan (10/08/2023 9:59 AM TECHNICAL ADMINISTRATOR): Chronic, stable, well controlled BP at goal at visit; 126/80 Continue Metoprolol 50 mg daily and Clonidine 0.1 mg daily Assessment & Plan (04/07/2023 12:23 PM CDT): Blood pressure at target, no chest pain or headaches, no episodes of orthostatics Continue metoprolol 50 mg daily, clonidine 0.1 mg daily Assessment & Plan (01/27/2023 10:19 AM CDT): Stable, well controlled; blood pressure at target, no chest pain pressure discomfort Continue clonidine 0.1 mg daily, metoprolol 50 mg daily Assessment & Plan (12/02/2022 6:01 PM CDT): Blood pressure elevated today; no chest pain or pressure Home blood pressures typically at target Continue clonidine 0.1 mg daily, metoprolol 50 mg daily Environmental allergies 10/21/2022 Assessment & Plan (11/02/2024 12:52 PM CDT): Stable, generally well controlled, managed with treatments Continue Xyzal 5 mg daily, Astelin nasal spray and Flonase nasal spray Assessment & Plan (05/02/2024 10:34 AM CDT): Stable, generally well controlled; acutely worsened due to change in weather and harvesting Continue Xyzal daily; Flonase p.r.n.; continue using nasal lavage Assessment & Plan (04/07/2023 12:23 PM CDT): Stable, generally well controlled; continues to have good and bad days depending on environment Continue Xyzal 5 mg daily, Astelin 1 spray b.i.d. Assessment & Plan (01/27/2023 10:19 AM CDT): Continues to have fullness severe, some swelling of turbinates; continue Xyzal 1-2 times daily; will start Astelin nasal spray b.i.d. If no relief of fullness in ears congestion, consider referral to ENT Hyperlipidemia 02/01/2017 Assessment & Plan (11/02/2024 12:51 PM CDT): Stable, well controlled, cholesterol levels well managed with current medication, will recheck every 12 months Continue atorvastatin 10 mg daily Assessment & Plan (05/02/2024 10:33 AM CDT): Stable, well controlled, lipids and optimal ranges; no muscle aches or side effects from medication Continue atorvastatin 10 mg daily Assessment & Plan (03/01/2024 2:13 PM CDT): Chronic, stable Continue Atorvastatin 10 mg daily Assessment & Plan (02/10/2024 9:21 AM CDT): Impression: Chronic and stable. Plan: Continue atorvastatin. Assessment & Plan (10/08/2023 10:00 AM TECHNICAL ADMINISTRATOR): Chronic, stable; lipids improving from prior ASCVD risk 7.1%; down drom 9.8% Continue Atorvastatin 10 mg daily Assessment & Plan (04/07/2023 12:23 PM CDT): Elevated total and triglycerides; immediate ASCVD risk of 9.8% Encourage low-fat high-fiber diet; continue to monitor lipids; if needed will adjust medication At this time continue atorvastatin 10 mg daily Assessment & Plan (01/27/2023 10:20 AM CDT): Elevated total and LDL cholesterol Start atorvastatin 10 mg daily Resolved Problems Problem Noted Date Diagnosed Date Resolved Date Poor circulation of extremity 12/28/2023 02/10/2024 Encounters Date Type Department Care Team Description 02/07/2025 Results Follow-Up [facility] at [address] [place] [address] Hailey Russell NP XR Knee Left 3 Vw 02/06/2025 11:44 AM CDT - 02/06/2025 11:59 PM CDT Hospital Encounter [facility] Radiology - Outpatient Center at [address] [address] Chronic pain of left knee Discharge Disposition: Discharge to home or self care 02/05/2025 6:00 PM CDT Office Visit [facility] Care at [address] [place] [address] Elizabeth Rodas NP Chronic pain of left knee (Primary Dx); Prepatellar bursitis of left knee 02/05/2025 Nurse Triage [facility] [address] [id number] Richard Gonzalez MD from Last 3 Months Immunizations Immunization Administration Dates Next Due Influenza, Unspecified 11/02/2024(Deferr ed: Patient Refused),06/24/2023(Deferred: Patient Refused),06/24/2023(Deferred: Patient Refused),01/27/2023(Deferred: Patient Refused),05/23/2022(Deferred: Patient Refused),05/23/2022(Deferred: Patient Refused) Surgical History Surgery Date Site/Laterality Comments FOOT SURGERY 08/23/2016 - 08/22/2017 OTHER SURGICAL HISTORY cyst excision BLADDER SURGERY 08/23/2023 - 08/22/2024 Medical History Medical History Date Comments Hypertension Family History Medical History Relation Name Comments Diabetes Brother 1 Heart disease Brother 1 Stroke Brother 1 Diabetes Brother 2 Heart disease Brother 2 Heart disease Father Diabetes Mother Heart disease Mother Diabetes Sister Heart disease Sister Relation Name Status Comments Brother 1 Brother 2 Father Mother Sister Alive Social History Tobacco Use Types Packs/Day Years Used Date Smoking Tobacco: Former Cigarettes Q uit: 1995 Tobacco Cessation:Counseling Given: Not Answered Humiliation, Afraid, Rape, and Kick questionnair e Answer Date Recorded Within the last year, have y ou been afraid of your partner or ex-partner? No 04/07/2023 Within the last year, have y ou been humiliated or emotionally abused in other ways by your partner or ex-partner? No Within the last year, have y ou been kicked, hit, slapped, or otherwise physically hurt by your partner or ex-partner? No 04/07/2023 Within the last year, have y ou been raped or forced to have any kind of sexual activity by your partner or ex-partner? No 04/07/2023 Social Connection and Isolation Panel Answer Date Recorded In a typical week, how many times do you talk on the phone with family, friends, or neighbors? More than three times a week 04/07/2023 How often do you get togethe r with friends or relatives? More than three times a week 04/07/2023 How often do you attend [facility] or buddhism services? Never 04/07/2023 Do you belong to any clubs o r organizations such as anabaptism groups, unions, fraternal or athletic groups, or school groups? No 04/07/2023 How often do you attend meet ings of the clubs or organizations you belong to? Never 04/07/2023 Are you , , di vorced, , never , or living with a partner? 04/07/2023 AUDIT-C Answer Date Recorded Q1: How often do you have a drink containing alc ohol? 2-4 times a month 05/02/2024 Q2: How many drinks containi ng alcohol do you have on a typical day when you are drinking? 1 or 2 05/02/2024 Q3: How often do you have si x or more drinks on one occasion? Never 05/02/2024 Overall Financial Resource Strain (CARDIA) Answe r Date Recorded How hard is it for you to pa y for the very basics like food, housing, medical care, and heating? Not hard at all 04/07/2023 PHQ-2 Answer Date Recorded PHQ-2 Total Score (If total score is 3 or more points, staff should administer the PHQ-9) 0 05/02/2024 [facility] of Occupat ional Health - Occupational Stress Questionnaire Answer Date Recorded Do you feel stress - tense, restless, nervous, or anxious, or unable to sleep at night because your mind is troubled all the time - these days? Only a little 04/07/2023 Exercise Vital Sign Answer Date Recorde d On average, how many days pe r week do you engage in moderate to strenuous exercise (like a brisk walk)? 2 days 04/07/2023 On average, how many minutes do you engage in exercise at this level? 20 min 04/07/2023 Hunger Vital Sign Answer Date Recorded Within the past 12 months, y ou worried that your food would run out before you got the money to buy more. Never true 04/07/20 23 Within the past 12 months, t he food you bought just didn't last and you didn't have money to get more. Never true 04/07/2023 PRAPARE - Transportation Answer Date Re corded In the past 12 months, has l ack of transportation kept you from medical appointments or from getting medications? No 03/23 In the past 12 months, has l ack of transportation kept you from meetings, work, or from getting things needed for daily living? No 04/07/2023 Housing Stability Vital Sign Answer Alonso e Recorded In the last 12 months, was t here a time when you were not able to pay the mortgage or rent on time? No 04/07/2023 In the last 12 months, how many places have you lived? 1 04/07/2023 In the last 12 months, was t here a time when you did not have a steady place to sleep or slept in a chcf (including now)? No 04/07/2023 Comments No Sex and Gender Information Value Date Recorded Sex Assigned at Not on file Legal Sex Female 4:48 PM TECHNICAL ADMINISTRATOR Gender Identity Not on file Sexual Orientation Not on file Obstetrics History Last Filed Vital Signs Vital Sign Reading Time Taken Comments Blood Pressure 130/78 02/05/2025 5:54 PM CDT Pulse 67 02/05/2025 5:54 PM CDT Temperature 36.5 C (97.7 F) 02/05/2025 5:54 PM CDT Respiratory Rate 17 02/05/2025 5:54 PM CDT Oxygen Saturation 98% 02/05/2025 5:54 PM CDT Inhaled Oxygen Concentration - - Weight 76.2 kg (168 lb) 02/05/2025 5:54 PM CDT Height 162.6 cm (5' 4) 02/05/2025 5:54 PM CDT Body Mass Index 28.84 02/05/2025 5:54 PM CDT Plan of Treatment Health Maintenance Due Date Last Done Comments DTaP/Tdap/Td Vaccine (1 - Tdap) 1968 Pneumococcal vaccine 65+ (1 of 1 - PCV) 2007 Zoster Vaccine (1 of 2) 2007 Breast Cancer Screening-Mammogram 08/30/2024 08/30/2023, 05/21/2022, 10/12/2016, Additional history exists Influenza Vaccine (#1) 2025 Depression Screening 05/02/2025 05/02/2024, 03/01/2024, 12/28/2023, Additional history exists Fall Risk Assessment 05/02/2025 05/02/2024, 04/07/20 23 Well Visit 65+ 05/02/2025 05/02/2024, 04/07/2023 Osteoporosis Screening-Bone Density Scan 01/09/2027 01/09/2025, 11/24/2022 Colon Cancer Screening-Colonoscopy 02/05/2033 02/05/2023 Covid-19 Vaccine Discontinued 02/21/2021, 01/31/2021 Hepatitis C Screening Completed 10/21/2022 Colon Cancer Screening-CT Colonography Discontinued 02/05/2023 Colon Cancer Screening-DNA Stool Discontinued 02/06/20 Colon Cancer Screening-FIT Discontinued 02/05/2023 Colon Cancer Screening-Sigmoidoscopy Discontinued 02/05/2023 Hepatitis B Screening Completed 05/02/2024 Procedures Procedure Name Priority Date/Time Associated Diagnosis Comments XR KNEE LEFT 3 VIEWS Schedule ERICA, Read ERICA (Appt Today, Awaiting Results) 02/06/2025 11:50 AM CDT Chronic pain of left knee DEXA AXIAL SKELETON BONE DENSITY 1 OR MORE SITES Schedule Routine, Read Routine (OP Routine) 01/09/2025 7:48 AM CDT Osteoporosis screening Post-menopause SCREENING MAMMOGRAM BILATERAL [place] Schedule Routine, Read Routine (OP Routine) 08/30/2023 COLONOSCOPY REPORT Routine 02/05/2023 HEPATITIS C ANTIBODY Routine 10/21/2022 3:52 PM TECHNICAL ADMINISTRATOR Encounter for hepatitis C screening test for low risk patient from Last 3 Months or Most Recently Relevant to Health Maintenance Results * XR Knee Left 3 Vw (02/06/2025 11:50 AM CDT) Anatomical Region Laterality Modality Lower Extremities, Knee Left Computed Radiography 02/06/2025 9:19 PM CDT Narrative 02/06/2025 9:20 PM CDT EXAM DESCRIPTION: XR KNEE LEFT 3 VIEWS REASON FOR STUDY: left knee pain Complaints of L knee swelling since Wednesday. No complaints of pain. NKI. Pt states she has been going up/down her stairs more often than usual. No prior injuries/surgery to L knee. TECHNIQUE: There are 3 radiographic view(s) of the left knee . COMPARISON: No prior. FINDINGS: Normal mineralization. No acute fracture or dislocation. Joint spaces are intact. No effusion. IMPRESSION: No acute osseous abnormality. THIS IS AN ELECTRONICALLY VERIFIED FINAL REPORT 02/06/2025 9:20 PM - Electronically signed by Dajuan Banegas M.D. MJ: DELMA Report ID: [id number] Reading Location: [id number] Procedure Note Dajuan Banegas MD - 02/06/2025 EXAM DESCRIPTION: XR KNEE LEFT 3 VIEWS REASON FOR STUDY: left knee pain Complaints of L knee swelling since Wednesday. No complaints of pain.NKI. Pt states she has been going up/down her stairs more often than usual.No prior injuries/surgery to L knee. TECHNIQUE: There are 3 radiographic view(s) of the left knee . COMPARISON: No prior. FINDINGS: Normal mineralization. No acute fracture or dislocation. Joint spacesare intact. No effusion. IMPRESSION: No acute osseous abnormality. THIS IS AN ELECTRONICALLY VERIFIED FINAL REPORT 02/06/2025 9:20 PM - Electronically signed by Daujan Banegas M.D. MJ: [facility] Report ID: [id number] Reading Location: [id number] Elizabeth Rodas NP IMG XR PROCEDURES Final Result * Dexa Axial Skeleton Bone Density 1 or 2 Site (01/09/2025 7:48 AM CDT) Anatomical Region Laterality Modality Body N/A Radiographic Zulema ging Richard Gonzalez MD IMG DXA PROCEDURES Final Result * Screening Mammogram Bilateral [place] (08/30/2023) Anatomical Region Laterality Modality Breast Bilateral Mammography Historical Provider IMG MAMMO PROCEDURES Vy l Result * Colonoscopy Report -[facility] (02/05/2023) Anatomical Region Laterality Modality Other Historical Provider GI PROCEDURE ORDERABLES F inal Result * (ABNORMAL) Hepatitis C antibody (10/21/2022 3:52 PM TECHNICAL ADMINISTRATOR) Hep C Ab Reactive( A) Nonreactive TAVO MEJIA (KIN) Comment: Critical Result Critical Result called to and read back by Claudia Mays, DATE: 2022-10-22 08:07:55 BY: Interpretive Data Nonreactive: Antibodies to HCV not detected. Does NOT exclude the possibility of recent exposure to HCV. Equivocal: Equivocal for HCV antibodies. Supplemental molecular testing will be automatically performed to determine infection status in accordance with current CDC screening recommendations. Reactive: Positive for HCV antibodies. This may represent current or past HCV infection. Supplemental molecular testing will be automatically performed to determine current infection status in accordance with current CDC screening recommendations. Interpretive data was last revised on 2019. Testing performed by: [facility], [address] [place] [address]., [id number] Blood 10/21/2022 3:52 PM TECHNICAL ADMINISTRATOR 10/21/2022 7:05 PM TECHNICAL ADMINISTRATOR Richard Gonzalez MD LAB MICROBIOLOGY - GENERA L ORDERABLES Final Result TAVO MEJIA (KIN) 1 [facility] [place] [address] from Last 3 Months or Most Recently Relevant to Health Maintenance [place] [address] [place] [address] [facility] MEDICARE ADVANTAGE [facility] MEDICARE ADVANTAGE Care Teams Marble Polisher Relationship Specialty Start Date End Date [place] [address] PCP - General Family Medicine 10/21/22 Unknown, Notinfile 08/13/22
--- OUTSIDE RECORDS SUMMARY | 2025-04-18 14:39 | XMS_ITS | Encounter Summary ---
Author Organization [facility] Address [address] [place] [address] Phone Care Team Providers Care Aging Box Hand Name Role Phone Jhoan Allen MD Primary Care Provider [phone] [place] Campo MD Unavailable [phone] Reason for Visit * Reason Comments Medication Refill Encounter Details Date Type Department Care Team (Late st Contact Info) Description 09/03/2022 Refill [facility] - Primary Care - [place] [address] [place] [id number] Jhoan Allen MD [address] [place] [address] Medication Refill Social History Tobacco [...] Telephone Encounter - Suzanne Herrera RN - 09/04/2022 7:56 AM CST metoprolol Succinate (TOPROL-XL) 50 MG TABLET SR 24 HR 30 Tablet 0 08/31/2022 Refill too soon T METAL WORKER SUPERVISOR documented in this encounter Plan of Treatment Not on file documented as of this encounter Visit Diagnoses Diagnosis Hypertension, essential Unspecified essential hypertension documented in this encounter Additional Health Concerns Assessment Noted Time PHQ-9 Depression Total Score: 1 05/19/20 18 1:00 PM CDT documented as of this encounter Care Teams Aging Box Hand Relationship Specialty Start Date End Date Jhoan lAlen MD [address] [place] [address] PCP - General Internal Medicine 09/02/15 New Campo MD [address] [facility] [address] [place], [place] [id number] Consulting Physician Obstetrics & Gynecology 01/29/17 documented as of this encounter
--- OUTSIDE RECORDS SUMMARY | 2025-04-18 14:40 | XMS_ITS | Clinical Summary ---
Author Organization [facility] Address [address] [place] [address] Phone Care Team Providers Care Test Director Name Role Phone Jhoan Allen MD Primary Care Provider [phone] New Campo MD Unavailable [phone] Allergies Active Allergy Reactions Criticality Noted Date Comments Methylprednisolone Unknown 03/04/2020 Medications potassium chloride CR (KLORCON) 10 MEQ Tablet Controlled Release 12/31/19 17 Active hydroCHLOROthiazide 25 MG Tablet 12/31/19 17 Active cloNIDine (CATAPRES) 0.1 MG Tablet Take 0.1 mg by mouth daily. Active estradiol (ESTRACE) 1 MG Tablet Take 1 mg by mouth daily. Hazardous: Medication requires special safe handling and disposal. Active atorvastatin (LIPITOR) 10 MG TabletIndications:M ixed hyperlipidemia,Medi cation management Take 1 Tab by mouth daily. 30 Tab 04/21/20 19 Active SUMAtriptan (IMITREX) 50 MG Tablet TAKE 1 TABLET BY MOUTH ONCE NEEDED FOR MIGRAINE FOR UP TO 1 DOSE. MAY REPEAT DOSE IN 2 HOURS IF HEADACHE RECURS. 9 Tablet 09/09/19 22 Active Multiple Vitamins-Minerals (MULTIVITAMIN WOMENS 50+ ADV PO) Take 1 Tablet by mouth daily. Active Ascorbic Acid (Vitamin C) 250 MG Tablet Take 500 mg by mouth daily. Active Levocetirizine Dihydrochloride 5 MG Tablet 12/22/19 22 Active metoprolol Succinate (TOPROL-XL) 50 MG TABLET SR 24 HRIndications:Hyper tension, essential Take 1 tablet by mouth once daily 90 Tablet 12/29/19 23 Active Active Problems Problem Noted Date Diagnosed Date Hyperlipidemia 02/01/2017 Hypertension, essential Resolved Problems Problem Noted Date Diagnosed Date Resolved Date Annual physical exam (Adult) 03/26/2017 09/12/2021 HTN (hypertension) 2 Immunizations Immunization Administration Dates Next Due Covid-19, Mrna, Lnp-s, Pf, 30 Mcg/0.3 Ml Dose (P fizer) 02/21/2021,01/31/2021 Family History Medical History Relation Name Comments Heart Attack Brother 1 Stroke Brother 1 Heart Attack Brother 2 Heart Disease Father Heart Disease Mother Stroke Sister Relation Name Status Comments Brother 1 Brother 2 Father Mother Sister Social History Tobacco Use Types Packs/Day Years Used Date Smoking Tobacco: Former Cigarettes 1 20 0 09/02/1974 - 09/02/1994 Smokeless Tobacco: Never Tobacco Cessation:Counseling Given: Yes Alcohol Use Standard Drinks/Week Comments Yes 1 [...] on file Sexual Orientation Not on file Last Filed Vital Signs Vital Sign Reading Time Taken Comments Blood Pressure 120/68 01/23/2022 2:01 PM CDT Pulse 98 01/23/2022 2:01 PM CDT Temperature 36.3 C (97.3 F) 01/23/2022 2:01 PM CDT Respiratory Rate 18 01/23/2022 2:01 PM CDT Oxygen Saturation 96% 01/23/2022 2:01 PM CDT Inhaled Oxygen Concentration - - Weight 79.8 kg (176 lb) 01/23/2022 2:01 PM CDT Height 162.6 cm (5' 4) 01/23/2022 2:01 PM CDT Body Mass Index 30.21 01/23/2022 2:01 PM CDT Plan of Treatment Health Maintenance Due Date Last Done Comments DEXA Bone Density 1957 TdaP Immunization 1957 Cologuard 2002 Colonoscopy 2002 Colorectal Cancer Screening 2002 Immunochemical Fecal Occult Blood 2002 Pneumococcal Immunization (50+ years) (1 of 1 - PCV) 2007 Zoster Immunization (1 of 2) 2007 Mammogram 05/21/2023 05/21/2022, 0801/2021, 12/05/2018, Additional history exists SARS-COV-2 Immunization ( season) 2024 02/21/2021, 01/31/2021 Influenza Immunization (#1) 2025 Respiratory Syncytial Virus (RSV) Immunization (Adult) (1 - 1-dose 75+ series) 2032 Hepatitis B Immunization Aged Out No longer eligible based on patient's age to complete this topic Human Papillomavirus (HPV) Immunization Aged Out No longer eligible based on patient's age to complete this topic Meningococcal Immunization (ACWY) Aged Out No longer eligible based on patient's age to complete this topic Rotavirus Immunization Aged Out No lo nger eligible based on patient's age to complete this topic Procedures Procedure Name Priority Date/Time Associated Diagnosis Comments MAMMOGRAM BILATERAL GENERIC 05/21/2022 12:00 AM CDT from Last 3 Months or Most Recently Relevant to Health Maintenance Results * MAMMOGRAM BILATERAL MISCELLANEOUS (05/21/2022 12:00 AM CDT) 05/21/2022 us Not On File Provider IMG MAMMO ORDERABLES Final Result SCAN from Last 3 Months or Most Recently Relevant to Health Maintenance Care Teams Test Director Relationship Specialty Start Date End Date Jhoan Allen MD [address] [place] [address] PCP - General Internal Medicine 09/02/15 New Campo MD [address] [facility] [address] [place] [address] Consulting Physician Obstetrics & Gynecology 01/29/17
== END 2025-04-18 14:34 | disposition home or self-care (01) ==
LOC: ANHFOHIMG 14:35
PROVIDERS: PCP Hospitalist; Visit Provider Obstetrics & Gynecology
DX: Z12.31 Encounter for screening mammogram for malignant neoplasm of breast (principal); Z98.82 Breast implant status
CPT/HCPCS: 77063; 77067